=== PATIENT | male | born 1985 | race Caucasian/White ===

== ENCOUNTER 2018-06-07 21:29 | Inpatient (IN) | payer MEDICAID ==
--- NOTE | 2018-06-07 21:52 | EDPHY ---
General Time Seen by Provider: 06/07/18 21:47 Narrative: CHIEF COMPLAINT: Alcohol intoxication HISTORY OF PRESENT ILLNESS: Patient presents by EMS with reports of being intoxicated. he denies any complaints of any kind. he says she had to alcohol drinks earlier today with friends. EMS reportedly states that he was found intoxicated in public and they were activated by police. he is reportedly not on an arc hold. he will not provide any information to me continues to mobile 7 but incoherently. I am unable to obtain reliable H&P from him at this time. REVIEW OF SYSTEMS: Ten systems reviewed and are negative unless otherwise noted in the HPI PCP: None SPECIALISTS: None PAST MEDICAL HISTORY: Denies any medical history PAST SURGICAL HISTORY: Unable to obtain from the patient SOCIAL HISTORY: Unable to obtain from the patient FAMILY HISTORY: Unable to obtain from the patient EXAMINATION General Appearance: Alert, no distress unkempt. Head: normocephalic, atraumatic Eyes: Pupils equal and round with slight enlargement, no conjunctival pallor or injection EOM symmetric. ENT, Mouth: Mucous membranes moist Neck: Normal inspection, supple, non-tender Respiratory: Lungs are clear to auscultation Cardiovascular: Regular rate and rhythm. No murmur Gastrointestinal: Abdomen is soft and nontender Back: non-tender, no bony abnormalities Neurological: GCS 15. he will not fully cooperate for entire neuro testing. he has excellent strength in the upper extremities. Skin: Warm and dry, no rash. Unclean feet and hands. Subacute lacerations to the volar aspect of the left upper extremity. Extremities: Nontender, no pedal edema Psychiatric: Mood and affect normal DIFFERENTIAL DIAGNOSES: Including but not limited to acute alcohol intoxication, chronic alcohol abuse, alcohol dependency, polysubstance abuse, psychosis MDM: 9:50 p.m. Patient reportedly here for public intoxication not on an arc hold. She has no complaints of any kind. She says she had 2 shots of alcohol earlier today and denies drugs. She is awake but exhibiting psychosis and will not answer my questions completely. She is unkempt does appear to be homeless but in no distress. I have ordered a breathalyzer treatment by security. 9:59 p.m. Breathalyzer was attempted but they are unable to complete this as the patient is not cooperative. I do not smell any alcohol about him. I cannot conclude the patient is drug at this time. Concerned that he is exhibiting acute psychosis, thus I will discuss with Dr. Marlow. And placed him on a detainer. 11:30 p.m. Patient's urine drug screen is positive for methamphetamine. He remains somewhat animated but his alcohol level is negative. He will need psychiatric evaluation. 1:15 a.m. At this time Dr. Marlow will assume care the patient. He is pending psychiatric evaluation. He will need to be evaluated in the morning due to his positive amphetamine screen. Addendum When I return to work following day the patient is still in the emergency department. I was asked evaluate the patient due to escalation of behavior and requested medication. I have done so in ordered Zyprexa. Patient is still pending psychiatric evaluation and Dr. Waters will provide definitive care. SUPERVISION: Patient was independently examined, but I discussed the case with my secondary supervising physician Dr. Marlow ([facility]) Medical Decision MakinAM: Patient has been sleeping. No acute events tonight. Patient positive for methamphetamine. On a detain her for intoxication. Plan is for mental health eval/re-eval after meth is metabolized. (Ever Marlow) Patient has remained stable during my care. 2:10 p.m. patient has been evaluated by mental health and they feel that the patient is gravely disabled and requires inpatient admission. Patient has been accepted at [address] [place] [address]. (Dylan Waters) - Objective Vital Signs: Initial Vital Signs Temperature (C) 98.1 F 06/07/18 21:51 Heart Rate 85 06/07/18 21:51 Respiratory Rate 16 06/07/18 21:51 Blood Pressure 113/65 06/07/18 21:51 O2 Sat (%) 99 06/07/18 21:51 O2 Delivery Mode Room Air Allergies/Adverse Reactions: No Known Allergies Allergy (Unverified 06/07/18 21:51) Home Medications: Medication Instructions Recorded NK [No Known Home Meds] 06/07/18 Laboratory Results: Laboratory Results 06/07/18 22:57 06/07/18 22:57 Medications Given: Discontinued Medications Olanzapine (Olanzapine) 10 mg PO ONCE ONE Stop: 06/08/18 12:20 Last Admin: 06/08/18 12:36 Dose: 10 mg Departure - Departure Disposition: [facility] IP Clinical Impression: Polysubstance abuse, Methamphetamine abuse Psychosis Qualifiers: Psychosis type: unspecified psychosis type Qualified Code(s): F29 - Unspecified psychosis not due to a substance or known physiological condition Condition: Fair Referrals: NONE *PRIMARY CARE P,. [Primary Care Provider] - As per Instructions
[2018-06-08 02:36] LABS: PLATELET COUNT 369 10^3/uL (150-400)
[2018-06-08] MEDS ORDERED: OLANZapine 5 MG TAB PO ONE (12:19)
--- NOTE | 2018-06-08 15:32 | ASMTTLCEVL ---
TLC Evaluation - Basic Information Evaluation Start Date and 06/08/2018 12:00 PM Time Hospital Status Answers: M1 Hold 72-hr M1 Hold Start Date 06/08/2018 02:01 PM and Time Patient statement Notes: I don't know why I tested positive for Methamphetamine, I didn't take any Meth." Narrative Notes: PT is a 32 year old, unemployed, homeless, anatomically male, but identifies as female, and prefers to be called [facility]. PT presented to [facility] and tested positive for marijuana and methamphetamine. PT is not a reliable historian and was agitated and refusing to answer any questions. ED prescribed 10 mg of Zyprexa which initially PT refused and said he only want Xanax. PT said he didn't want any injections or any blood drawn, and asked several times where he was. PT finally agreed to take the Zyprexa by mouth. PT reported that he didn't know if he had any mental health diagnosis, and PT reported he had been hospitalized but was unable to say why he had been hospitalized. Diagnosis History Notes: PT was unable to provide the information. Prior suicide attempts Notes: Denied any past or current SI. Prior hospitalizations Notes: PT reported that they had been hospitalized several times, but was unable to state where and for what. Treatment Responses Notes: Unable to report. History of violence Notes: Denied any history of violence. Medications (name, dosage, route, freq uency) Notes: Spironolactone, Estrodial Allergies/Reaction Notes: Haldol, Codeine Sleep Notes: Unable to report. Appetite Notes: Unable to report. Medical/Surgical history Notes: Denied Substance use history (frequency, intensity, his tory, duration) Notes: PT reported that "I drink every day and use marijuana and methamphetamine but I don't like to use them." Family composition Notes: PT reported that he had family in [place] but did not give any other information. Need for family Answers: No participation in patient's care Family psychiatric/substance abuse history Notes: Unable to answer. Developmental history Notes: Unable to answer. Abuse concerns Answers: None Marital status/children Notes: PT reported she has not been or have any children. Living situation Notes: Homeless Sexual history/orientation Notes: Did not respond. Peer support/family strengths Notes: Denied having any friends. Education level/history Notes: PT reported that he completed his GED. 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 Notes: None Legal Notes: Denied Confucianism/Spiritual Notes: PT reported being Zoroastrianism. Leisure Notes: Denied Collateral Notes: None [facility] Evaluation - Mental Status Exam Appearance: Answers: Unclean Unkempt Eye Contact: Answers: Staring Mood: Answers: Labile Affect: Answers: Agitated Angry Hostile Labile Behavior: Answers: Uncooperative Aggressive Guarded Resistive to Care Suspicious Speech: Answers: Illogical Delayed Loud Mumbling Selectively Mute Threatening Thought Process: Answers: Disorganized Paranoid Thought Blocking Insight: Answers: Poor Judgement: Answers: Poor Manic Signs/Symptoms Answers: Irritability Mood Swings Hallucinations: Answers: None Delusions: Answers: Persecution Pt reported to have Answers: No suicidal/self-injuring ideation/behavior? Pt reported to be making Answers: No suicidal/self-injuring threats? Pt reported to have Answers: No aggression/assault ideation/behavior? Pt reported to be making Answers: No aggression/assault threats? Pt exhibits inability to Answers: Yes care for self/grave disability? Ideation/behavior is Answers: No chronic? Patient has a specific Answers: No plan? Ideation involves Answers: No serious/lethal intent? Ideation has Answers: No delusional/hallucinatory content? History of Answers: No aggressive/assaultive ideation, behavior, or threats? History of serious Answers: No physical harm to self/others while in treatment setting? [facility] Evaluation - Suicide/Homicide Risk Suicide Risk Factors: Answers: < 20 or > 40 Years of Age Agitation Financial Difficulties Inadequate Social Support Unstable Living Situation Other Notes: Homeless Homicide/violence risk Answers: None factors: Current Suicidal Answers: No Ideation? Current Suicidal Ideation Answers: No in the Past Month? Current Suicidal Answers: No Ideation, Worst Ever? Ranking of patient's Answers: Low suicidal risk: Ranking of patient's Answers: Low homicidal risk: [facility] Evaluation - Wrap-up BDI Total Score: unable to fill out BDI Question #2 Score: unable to fill out BDI Question #9 Score: unable to fill out BSS Total Score: unable to fill out AXIS I Diagnosis (include DSM-V and ICD-10 codes), must also be entered in [employer]Q, which is the source of truth. 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
--- NOTE | 2018-06-08 16:20 | ASMTTCLDSP ---
TLC Discharge Disposition Disposition: Answers: Admit Disposition Notes: Notes: In consultation with ED Physician Dylan Waters MD and on-call Psychiatrist Rashad Murillo MD, both concurred that PT does appear to meet 27-65 criteria requiring inpatient hospitalization as PT appears to be gravely disabled due to a mental illness condition Discharge Concerns/Recommendations: Notes: Elopement Was patient given the Answers: Yes Inpatient [facility] Prohibited Belongings List while in the ED? For inpatient Dr. Rashad Murillo admission, the following psychiatrist agreed to accept patient for admission to [facility] Type of Hold: Answers: M1/72-hour Hold Hold initiated by: Answers: ED Physician Date Signed: 06/08/2018 04:19 PM Electronically Signed By:Roxanna Guzmán
[2018-06-08] MEDS ORDERED: MAGNESIUM HYDROXIDE 30 ML UDCUP PO PRN (21:21)
[2018-06-08] MEDS ORDERED: NICOTINE POLACRILEX 2 MG GUM B PRN (21:21)
[2018-06-08] MEDS ORDERED: ACETAMINOPHEN 325 MG TAB PO PRN (21:21)
[2018-06-08] MEDS ORDERED: MAG HYDROX/AL HYDROX/SIMETH 30 ML UDCUP PO PRN (21:21)
[2018-06-08] MEDS ORDERED: LORazepam 0.5 MG TAB PO PRN (21:21)
[2018-06-08] MEDS ORDERED: OLANZapine 5 MG TAB PO PRN (21:22)
--- NOTE | 2018-06-09 08:03 | ASMTBHMTP ---
Master Treatment Plan Master Treatment Plan Answers: Mood Instability with for: Psychosis Date: 06/09/2018 Diagnosis on Admission: Other Specified Schizophrenia Spectrum and other Psychotic Disorder 298.8 (F28) Expected length of stay: 3-5 days Reason for admission: Notes: Pt is a 32 yoa (anatomicalluy male, but identifies as female) and prefers to be called [facility]. Pt presented to [facility] ED by EMS after being found to be intoxicated in public and were activated by [place] [employer]. Client presented as incoherent and not (able) to answer any question(s) being asked by providers. Client tested positive for Methamphetamine & Marijuana and possible Alcohol. 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 Patient's stated presenting problems: Notes: "[I] don't know." Patient's goals for treatment: Notes: "to sleep" Patient's strengths: Notes: none Identify supports outside of hospital: Notes: "don't know" Discharge criteria: Notes: Patient will demonstrate more stable mood by discharge Initial disposition plan/considerations: Notes: "don't know" Master Treatment Plan Required Signatures Psychiatrist signature: Answers: Psychiatrist: RN on-shift signature: Answers: RN: Patient signature: Answers: Patient: Date Signed: 06/09/2018 08:02 AM Electronically Signed By:Juan David Prajapati
--- NOTE | 2018-06-09 08:26 | PDGENHP ---
History and Physical History and Physical: ASSESSMENT: # ACUTE INTOXICATION WITH URINE SCREEN POSITIVE FOR METH AND POT * pt denies being intoxicated, however he takes no medicines that would cause false positive on drug screen, and there is no other explanation at present for his presenting condition, which has resolved completely spontaneously; I do believe he was on Methamphetamine at time of presentation. # IN PROCESS OF SEX CHANGE * takes aldactone and estradiol for this which I have prescribed # PT DENIES MENTAL HEALTH ILLNESS TO ME BUT MY CURRENT EXAM DID NOT ATTEMPT TO ELICIT SIGNS OF DEPRESSION/ANXIETY OR PERSONALITY DISORDER BEYOND INTIAL HISTORY TAKING # NO EVIDENCE OF ANY ACUTE OR CHRONIC MEDICAL ILLNESS REQUIRING ANY FURTHER ATTENTION AT THIS TIME RECOMMENDATIONS: * from IM standpoint can be discharged any time * substance abuse counseling indicated * available for any further consultation needed SUBJ: pt brought in by ems after police were called for public intoxication and behaviors requiring police attention in ER was initially very confused and unable to give any history, but did not appear physically ill evaluation there was positive for intoxicated mentation/behaviors and drug screen + for pot and methamphetamine pt denies depression or suicidal ideation to me Pt denies having been intoxicated to me at present Says no current or recent sxs of illness, no hx of any medical issues Denies use of any street drugs, admits to occaisional tobacco, occaisonal pot, low level etoh use PMH: denies past illness or injury ROS: no other findings SOCIAL: on street is in process of gender change, likely to attempt to get surgery substance use as above states "I have no family" FAMILY HX: states "I have no family" VITALS: have all been normal but for one mildly tachycardic HR EXAM: wide awake, alert, normal mentation, normal affect for situation with mild irritability, frustration no evidence of psychosis no tremor; normal speech/language, 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
[2018-06-09] MEDS: ESTRADIOL 1 MG TAB PO SCH ×2 (08:42→20:29)
[2018-06-09] MEDS: SPIRONOLACTONE 100 MG TAB PO SCH ×2 (08:42→20:29)
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
--- NOTE | 2018-06-09 15:33 | PDMN ---
Medical Necessity Medical necessity: [facility] M595 substance related disorders, 2 days and B011IP Other Psychotic Disorders, Adult: Inpatient Care. Pt dx with substance induced psychosis, gravely disabled on M1 hold. Meth/ETOH/Cannabis abuse.
[2018-06-09 17:13] LABS: HEPATITIS A ANTIBODY IGM (BCH) NEGATIVE (NEGATIVE); HEPATITIS B CORE AB IGM NEGATIVE (NEGATIVE); HEPATITIS B SURFACE ANTIGEN NEGATIVE (NEGATIVE); HEPATITIS C ANTIBODY TOTAL REACTIVE (NEGATIVE); HIV TYPE 1 AND 2 NEGATIVE (NEGATIVE)
[2018-06-10] MEDS: SPIRONOLACTONE 100 MG TAB PO SCH ×2 (08:44→20:26)
[2018-06-10] MEDS: ESTRADIOL 1 MG TAB PO SCH ×2 (08:44→20:26)
--- NOTE | 2018-06-10 13:36 | ASMTBHDC ---
Notes Note: Notes: This CC met with patient multiple times - once when she was in her room resting and the second time in the dining room. Patient appears agitated, spoke of her meal not having the foods she likes/needs and this was due to patient arriving too late the previous day to make meal requests. Patient was waiting for additional protein from the cafeteria. Patient was uninterested in conversing with CC and a complete assessment could not be completed. Date Signed: 06/10/2018 01:35 PM Electronically Signed By:Kaye Martins
[2018-06-10] MEDS ORDERED: IBUPROFEN 200 MG TAB PO PRN (13:49)
[2018-06-10] MEDS ORDERED: chlordiazePOXIDE 25 MG CAP PO PRN (13:49)
[2018-06-10] MEDS ORDERED: PROMETHAZINE HCL 25 MG SUPPR PR PRN (13:49)
[2018-06-10] MEDS ORDERED: PROMETHAZINE HCL 25 MG TAB PO PRN (13:49)
[2018-06-10] MEDS ORDERED: THIAMINE HCL 100 MG TAB PO ONE (13:49)
--- NOTE | 2018-06-10 13:59 | SOAPPROG ---
SOAP Progress Note Assessment/Plan: Assessment: 32 yo transgender male to female, prefers to be called Amarilis, has long h/o polysubstance dependence including alcohol, methamphetamine, marijuana, heroin and crack cocaine all within the past 3 mos. She has prior h/o depression, cutting, and SA by OD. She was BIB police d/t public intoxication. In ED, she was confused, irritable and unable to answer questions, so she was placed on mental health hold d/t grave disability. All of these sxs have resolved when patient no longer intoxicated. Plan: 06/10/18 13:52 1. Patient has h/o daily drinking up to 5 glasses/shots daily with weekly binge drinking (> 5 drinks/day). She currently denies any w/d sxs, and VSS since admission. However, will start on CIWA with Librium per protocol as a precaution. 2. Patient is irritable at times, but does not show signs of psychosis (no paranoia, no IOR, no hallucinations, no RIS). She denies feeling sad, depressed , hopeless, helpless or anxious. She is "afraid to get back on street" but has no thought, plan or intent to hurt herself or anyone else. 3. Labs reveal Hep C positive, Syphilis negative, Chlamydia and Gonorrhea pending. 4. [facility] expires tomorrow at 1401. Will refer patient to [facility] for primary care and to address ongoing health concerns including Hep C. Will also refer to [facility] for substance use disorder treatment. MD recommends SA IOP and/or individual or group therapy with [facility]. Patient verbalizes understanding of the health risks (including adverse effects on mood, cognition, judgment) associated with ongoing substance use, but states she is not interested in treatment at this time. 5. Recommend patient stay in hospital voluntarily to get connected to outpatient providers on Tuesday. 6. Possible d/c tomorrow if patient elects not to remain voluntarily. Subjective: Met with patient, reviewed chart and d/w staff. Patient is unkempt and malodorous. Patient has very poor dentition likely d/t drug use and neglect of dental hygiene. Patient states she has been homeless most of her adult life. She is also transient. She was living on street in [place] approximately 3 months ago. She says she was using crack cocaine daily and using heroin IV every 2-3 days during this time. In [place], she has been using methamphetamine , alcohol and marijuana on daily basis. She has no providers in [place]. recommended patient establish care through [facility] to get treatment for her general health concerns as well as to be monitored for Hep C. MD discussed options for getting help with polysubstance drug use. Patient says she understands the health risks associated with continued drug use, including hepatotoxicity, hepatic encephalopathy, cardiac related problems and other serious adverse effects. She also states she is aware of the mental health effects of drug use including depression, mood instability, reckless/impulsive behavior, impaired cognitive ability, and impaired judgment. MD warned that continued drug use puts patient at increased risk for worsening self-harm and possibility of acting on rash thoughts of suicide while under influence of brain -altering substances. She acknowledges understanding these risks, but says she isn't interested in treatment at this time. Patient denies current SI/HI. Objective: Vital Signs Temp Pulse Resp BP Pulse Ox 36.5 C 85 16 103/58 L 96 06/10/18 06:00 06/10/18 06:00 06/10/18 06:00 06/10/18 06:00 06/10/18 06:00 MSE: Affect: Irritable, labile Mood: "OK" TP: Disorganized TC: Denies any SI/ HI, no AH/VH Insight/Judgment: Poor - Time Spent With Patient Time Spent With Patient: 20" - Pending Discharge Pending Discharge Within 24 Hours: Yes Pending Discharge Within 48 Hours: No Pending Discharge Date: 06/11/18 (Possible d/c tomorrow if patient chooses not to stay voluntarily ) Pending Discharge Time: 11:00 ICD10 Worksheet Patient Problems: Problems Problem Status Onset Alcohol intoxication Acute Alcohol use disorder, severe, in controlled environment Acute Amphetamine substance use disorder, severe, in controlled environment Acute Cannabis use disorder, moderate, in controlled environment Acute Heroin use disorder, moderate, in early remission, in controlled environment, dependence Acute Homelessness Acute [id number] transgender person Acute Polysubstance abuse Acute Substance-induced psychotic disorder Acute
[2018-06-11] MEDS: SPIRONOLACTONE 100 MG TAB PO SCH (07:38)
[2018-06-11] MEDS: ESTRADIOL 1 MG TAB PO SCH (07:38)
[2018-06-11] MEDS ORDERED: FOLIC ACID 1 MG TAB PO SCH (09:00)
[2018-06-11] MEDS ORDERED: THIAMINE HCL 100 MG TAB PO SCH (09:00)
[2018-06-11] MEDS ORDERED: MULTIVITAMINS 1 EACH TAB PO SCH (09:00)
[2018-06-11 12:13] VITALS: BP 90/62
--- NOTE | 2018-06-11 14:21 | ASMTBHDC ---
Notes Note: Notes: Patient to be discharged today at the expiration of her hold. Patient nan SI, states she is in the prime of her life and "why would I want to kill myself." Patient reports no interest in following up with MH or substance abuse treatment. Patient indicated she plans to return to [place]. Patient to be discharged back to the streets. Patient was given information for [facility] to follow-up with medical issues. Date Signed: 06/11/2018 02:20 PM Electronically Signed By:Kaye Martins
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
[2018-06-12 14:07] LABS: GC AMPLIFICATION GENPROBE NEGATIVE (NEGATIVE)
== END 2018-06-11 15:25 | disposition home or self-care (01) | DRG 897 ==
LOC: BBEH 06-08 19:25
PROVIDERS: ADMIT Psychiatry & Neurology Behavioral Neurology & Neuropsychiatry; ATTEND Psychiatry & Neurology Psychiatry
DX: F15.159 Other stimulant abuse with stimulant-induced psychotic disorder, unspecified (principal); F12.20 Cannabis dependence, uncomplicated; F10.20 Alcohol dependence, uncomplicated; F11.21 Opioid dependence, in remission; F19.10 Other psychoactive substance abuse, uncomplicated; F17.210 Nicotine dependence, cigarettes, uncomplicated; B19.20 Unspecified viral hepatitis C without hepatic coma; Z79.890 Hormone replacement therapy; Z59.0 Homelessness; Z87.890 Personal history of sex reassignment; Z91.5 Personal history of self-harm; Z60.4 Social exclusion and rejection
CPT/HCPCS: 80305; G0472; G0480

== ENCOUNTER 2018-06-27 03:34 | Emergency (ER) | payer MEDICAID ==
--- NOTE | 2018-06-27 03:54 | EDPHY ---
H & P Stated Complaint: refill medication - Personal History Current Tetanus/Diphtheria Vaccine: Unsure - Medical/Surgical History Hx Asthma: No Hx Chronic Respiratory Disease: No Hx Diabetes: No Hx Cardiac Disease: No Hx Renal Disease: No Hx Cirrhosis: No Hx Alcoholism: Yes Hx HIV/AIDS: No Hx Splenectomy or Spleen Trauma: No Other PMH: bipolar - Social History Smoking Status: Current every day smoker Time Seen by Provider: 06/27/18 03:51 HPI/ROS: Chief Complaint: Medication refill, suicidal thoughts HPI: 32-year-old trans gender patient presenting requesting medication refill for olanzapine and her hormone replacement. Patient states he has been off her medications for months. Is hoping that I can refill the prescriptions. Patient 's has a been seen at [facility] and they cannot help with medication refills. She states that she has attempted suicide twice in the last month, once by hanging and once by taking pills. Has not followed up for been seen by [facility]. Currently is afraid that if I cannot provide the medications that she will hurt herself. Is requesting to be placed in a psychiatric serrano. ROS: 10 point Review of Systems is negative except as noted in the HPI. PMH: Depression Social History: Positive smoking, no alcohol Family History: non-contributory Physical Exam: Gen: Awake, Alert, No Distress HEENT: Nose: no rhinorrhea Eyes: PERRLA, EOMI Mouth: Moist mucosa Neck: Supple, no JVD Chest: nontender, lungs clear to auscultation Heart: S1, S2 normal, no murmur Abd: Soft, non-tender, no guarding Back: no CVA tenderness, no midline tenderness Ext: no edema, non-tender Skin: no rash Neuro: CN II-XII intact, Sensation grossly intact, Strength 5/5 in bilateral upper and lower extremities (Darius Maki) Constitutional: Initial Vital Signs Temperature (C) 36.4 C 06/27/18 03:37 Heart Rate 109 H 06/27/18 03:37 Respiratory Rate 18 06/27/18 03:37 Blood Pressure 142/93 H 06/27/18 03:37 O2 Sat (%) 98 06/27/18 03:37 O2 Delivery Mode Room Air Allergies/Adverse Reactions: codeine Allergy (Verified 06/27/18 03:41) haloperidol [From Haldol] Allergy (Verified 06/27/18 03:41) Home Medications: Medication Instructions Recorded Estradiol [Estradiol 1 MG (*)] 2 mg PO BID 06/09/18 Spironolactone [Aldactone] 100 mg PO BID 06/09/18 Estradiol [Estradiol 1 MG (*)] 2 mg PO BID tab 06/11/18 Spironolactone [Aldactone 100 MG 100 mg PO BID tab 06/11/18 (*)] Medical Decision Making ED Course/Re-evaluation: 32-year-old transgender patient is requesting medication refills. I have explained that I do not refill patient's chronic pain medications and that she should follow up at [facility]. Patient is concerned that she will be suicidal and is not feeling safe. She is requesting mental health evaluation. I have ordered medical screening labs. Anticipate mental health evaluation morning. [address] patient signed out to Dr. Rodríguez pending mental health evaluation per ( Darius Maki) 8:15 a.m. the patient has been evaluated by Mental Health and Dr. Murillo personally. They are familiar with her from recent admission. They do not feel like she meets criteria for hold. She continues to refuse psychiatric care. She is not suicidal or homicidal. We encouraged cessation of substance abuse. (Ronak Rodríguez) Differential Diagnosis: Partial list of the Differential diagnosis considered include but were not limited to; depression, substance abuse, malingering and although unlikely based on the history and physical exam, I also considered suicidality, psychosis. (Ronak Rodríguez) - Data Points Laboratory Results: Laboratory Results 06/27/18 04:00 06/27/18 04:00 06/27/18 06/27/18 06/27/18 04:00 04:00 04:00 WBC 5.17 10^3/uL 10^3/uL (3.80-9.50) RBC 4.05 10^6/uL L 10^6/uL (4.40-6.38) Hgb 13.0 g/dL L g/dL (13.7-17.5) Hct 38.9 % L % (40.0-51.0) MCV 96.0 fL fL (81.5-99.8) MCH 32.1 pg pg (27.9-34.1) MCHC 33.4 g/dL g/dL (32.4-36.7) RDW 13.8 % % (11.5-15.2) Plt Count 297 10^3/uL 10^3/uL (150-400) MPV 10.3 fL fL (8.7-11.7) Neut % (Auto) 64.5 % % (39.3-74.2) Lymph % (Auto) 24.0 % % (15.0-45.0) [place] % (Auto) 9.5 % % (4.5-13.0) Eos % (Auto) 1.0 % % (0.6-7.6) Baso % (Auto) 0.8 % % (0.3-1.7) Nucleat RBC Rel Count 0.0 % % (0.0-0.2) Absolute Neuts (auto) 3.34 10^3/uL 10^3/uL (1.70-6.50) Absolute Lymphs (auto) 1.24 10^3/uL 10^3/uL (1.00-3.00) Absolute Monos (auto) 0.49 10^3/uL 10^3/uL (0.30-0.80) Absolute Eos (auto) 0.05 10^3/uL 10^3/uL (0.03-0.40) Absolute Basos (auto) 0.04 10^3/uL 10^3/uL (0.02-0.10) Absolute Nucleated RBC 0.00 10^3/uL 10^3/uL (0-0.01) Immature Gran % 0.2 % % (0.0-1.1) Immature Gran # 0.01 10^3/uL 10^3/uL (0.00-0.10) Sodium 145 mEq/L mEq/L (135-145) Potassium 3.1 mEq/L L mEq/L (3.3-5.0) Chloride 105 mEq/L mEq/L (97-110) Carbon Dioxide 29 mEq/l mEq/l (22-31) Anion Gap 11 mEq/L mEq/L (8-16) BUN 11 mg/dL mg/dL (7-23) Creatinine 0.6 mg/dL L mg/dL (0.7-1.3) Estimated GFR > 60 Glucose 70 mg/dL mg/dL (70-100) Calcium 9.4 mg/dL mg/dL (8.5-10.4) Urine Opiates Screen NEGATIVE (NEGATIVE) Urine Barbiturates NEGATIVE (NEGATIVE) Ur Phencyclidine Scrn NEGATIVE (NEGATIVE) Ur Amphetamine Screen NON-NEGATIVE H (NEGATIVE) U Benzodiazepines Scrn NEGATIVE (NEGATIVE) Urine Cocaine Screen NEGATIVE (NEGATIVE) U Marijuana (THC) Screen NON-NEGATIVE H (NEGATIVE) Ethyl Alcohol < 10 mg/dL mg/dL (0-10) Departure - Departure Disposition: Home, Routine, Self-Care Clinical Impression: Polysubstance abuse Depression Qualifiers: Depression Type: major depressive disorder Major depression recurrence: recurrent Active/Remission status: currently active Major depression episode severity: mild Qualified Code(s): F33.0 - Major depressive disorder, recurrent, mild Condition: Good Instructions: Depression (ED), Polysubstance Abuse (ED) Referrals: NONE *PRIMARY CARE P,. [Primary Care Provider] - As per Instructions [facility] [Clinic] - 1-2 days without fail
[2018-06-27 04:17] LABS: PLATELET COUNT 297 10^3/uL (150-400)
[2018-06-27 08:33] VITALS: BP 119/78
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
--- NOTE | 2018-06-27 08:39 | ASMTTCLDSP ---
TLC Discharge Disposition Disposition: Answers: Discharge If Answers: Yes DISCHARGED: Patient/family given suicide hotline info & [facility] brochure? Disposition Notes: Notes: Pt stated commitment or ability to keep self safe, denied thoughts of self harm or harm to others. Pt was given local hotline information and [facility] brochure After an Attempt and encouraged to follow up with [facility]. Discharge Concerns/Recommendations: Notes: In consultation with [facility] ED physician, Eddie Gill MD, and on-call psychiatrist, Rashad Murillo MD, both concurred that pt does not appear to meet 27-65 criteria requiring psychiatric hospitalization as pt does not appear to be an imminent risk of harm to self/others/gravely disabled due to a mental illness condition. Was patient given the Answers: Not applicable Inpatient Behavioral Health Prohibited Belongings List while in the ED? Date Signed: 06/27/2018 08:38 AM Electronically Signed By:Geo Carver
== END 2018-06-27 08:49 | disposition home or self-care (01) ==
DX: R45.851 Suicidal ideations (principal); F33.0 Major depressive disorder, recurrent, mild; F17.200 Nicotine dependence, unspecified, uncomplicated
CPT/HCPCS: 80305; G0480